=== PATIENT | female | born 1970 | race Hispanic/Latino ===

== ENCOUNTER 2020-03-21 21:16 | Inpatient (IN) | payer OTHER ==
[2020-03-21] MEDS ORDERED: CLINDAMYCIN 600MG/D5W 0 MG/0 ML BAG IV ONE (22:20)
[2020-03-21] MEDS ORDERED: NA CHLORIDE 0.9% 2,000 ML ONE (22:20)
[2020-03-21 22:22] LABS: Absolute Lymphocytes (CBC) 0.4 K/uL (0.7-4.9); Basophils % 0.1 % (0-1.3); Hematocrit 38.5 % (36.0-45.0); Lymphocytes % 3.1 % (15.3-44.8); MPV 9.6 fL (7.6-11.3)
[2020-03-21] MEDS ORDERED: BUPIVACAINE 0.5% PF 10 ML VIAL ONE (22:23)
[2020-03-21] MEDS ORDERED: LIDOCAINE 1% MPF 30 ML VIAL ONE (22:23)
[2020-03-21] MEDS ORDERED: ACETAMINOPHEN 500 MG TAB ONE (22:23)
[2020-03-21] MEDS ORDERED: CLINDAMYCIN 900MG/D5W 900 MG/50 ML IVPB IV ONE (22:23)
[2020-03-21] MEDS ORDERED: FENTANYL CITR 100 MCG/2 ML ONE (22:23)
[2020-03-21 22:35] LABS: Potassium 3.9 mmol/L (3.5-5.1)
[2020-03-21 22:41] LABS: Protime INR 1.1
[2020-03-21] MEDS ORDERED: VANCOMYCIN 1 GM/VIAL ONE (23:37)
[2020-03-21] MEDS ORDERED: NA CHLORIDE 0.9% 250 ML ONE (23:37)
--- NOTE | 2020-03-21 23:37 | ER ---
Nurse's Notes [facility] – [place], [place] Name: Lani Brito Age: 49 yrs Sex: Female : 1970 Arrival Date: 03/21/2020 Time: 21:18 Bed 5 Private MD: Diagnosis: Cutaneous abscess of right foot;Cellulitis of right lower limb;Other sepsis Presentation: 03/21 21:25 Chief complaint: Parent and/or Guardian states: mother: Swelling and pain on R foot x 2 ca1 - days. 21:28 Coronavirus screen: Client denies travel out of the [place] in the last 14 days. fever, ca1 Client presents with at least one sign or symptom that may indicate coronavirus-19. Standard/surgical mask placed on the client. Provider contacted for isolation considerations. Ebola Screen: Patient negative for fever greater than or equal to 101.5 degrees Fahrenheit, and additional compatible Ebola Virus Disease symptoms Patient denies exposure to infectious person. Patient denies travel to an Ebola-affected area in the 21 days before illness onset. No symptoms or risks identified at this time. Initial Sepsis Screen: Does the patient meet any 2 criteria? Temp <36.0*C (96.8*F)) or > 38.3*C (100.9*F). HR > 90 bpm. Does the patient have a suspected source of infection? Yes: Skin breakdown/wound. Risk Assessment: Do you want to hurt yourself or someone else? Patient reports no desire to harm self or others. Onset of symptoms was March 21, 2020. 21:28 Method Of Arrival: Wheelchair ca1 21:28 Acuity: NIK 2 ca1 SENIOR APPLICATIONS ANALYST: 21:31 LMP N/A - Post-menopause ca1 Historical: - Allergies: 21:31 No Known Allergies; ca1 - Home Meds: 21:31 None [Active]; ca1 - PMHx: 21:31 Cerebral Palsy; ca1 - PSHx: 21:31 Cholecystectomy; ca1 - Immunization history:: Adult Immunizations up to date, Flu vaccine is not up to date. - Social history:: Smoking status: Patient denies any tobacco usage or history of. Screenin:35 Abuse screen: Denies threats or abuse. Denies injuries from another. Nutritional sg screening: No deficits noted. Tuberculosis screening: No symptoms or risk factors identified. Never had TB. Fall Risk None identified. Assessment: 21:35 General: Appears well groomed, well developed, well nourished, Behavior is calm, sg cooperative, quiet. Pain: Complains of pain in right foot. Neuro: Level of Consciousness is awake, alert, obeys commands, Oriented to person, place, time, Facial symmetry appears normal. Cardiovascular: Patient's skin is warm and dry. Chest pain is denied. Respiratory: Airway is patent Respiratory effort is even, unlabored, Respiratory pattern is regular, symmetrical. GI: No signs and/or symptoms were reported involving the gastrointestinal system. : No signs and/or symptoms were reported regarding the genitourinary system. EENT: No signs and/or symptoms were reported regarding the EENT system. Derm: Skin is pink, warm \T\ dry. Rash noted that is red, on lateral side of right foot. Musculoskeletal: Circulation, motion, and sensation intact. Range of motion: intact in all extremities. 22:18 Reassessment: phlebo at bedside attempting to obtain BCx2, no success at this time, ERP sg notified. 22:55 Reassessment: xray at bedside at this time. sg 23:07 Reassessment: CAMI SALCEDO at bedside for ID at this time, pt family/bank vault custodian remains sg at bedside. 03/22 00:00 Reassessment: Patient appears in no apparent distress at this time. Patient and/or sg family updated on plan of care and expected duration. Pain level reassessed. 01:00 Reassessment: Patient appears in no apparent distress at this time. Patient and/or sg family updated on plan of care and expected duration. Pain level reassessed. Patient is alert, oriented x 3, equal unlabored respirations, skin warm/dry/pink. pt family remains at bedside, pt to be admitted, stated understanding Patient states feeling better. Vital Signs: 03/21 21:28 BP 116 / 83; Pulse 143; Resp 18 S; Temp 100.9(O); Pulse Ox 95% on R/A; Weight 63.5 kg ca1 (R); Height 5 ft. 2 in. (157.48 cm) (R); Pain 08/19; 22:52 BP 122 / 70; Pulse 121; Resp 18; Pulse Ox 99% on R/A; sg 03/22 00:39 BP 120 / 69; Pulse 108; Resp 18; Temp 99.2; Pulse Ox 99% ; Pain /; sg 03/21 21:28 Body Mass Index 25.61 (63.50 kg, 157.48 cm) ca1 ED Course: 03/21 21:18 Patient arrived in ED. ag3 21:30 Triage completed. ca1 21:31 Arm band placed on right wrist. ca1 21:33 Arnold Lira PA is PHCP. cp 21:33 Lamont Mckinney MD is Attending Physician. cp 21:35 Patient has correct armband on for positive identification. Bed in low position. Call sg light in reach. Warm blanket given. Head of bed elevated. 22:05 Davey Ro, ANNA is Primary Nurse. sg 22:06 Initial lab(s) drawn, by ca, sent to lab. Inserted saline lock: 22 gauge in left upper sg arm, using aseptic technique. Blood collected. 22:20 First set of blood cultures drawn by lab staff. Second set of blood cultures drawn by sg lab staff. 22:52 Notified Nurse Practitioner and/or Physician Plastic Cutter of a critical lab result(s), 2.1 sg Lactate. 22:58 XRAY Foot RIGHT 3 View In Process Unspecified. EDMS 23:15 Assist provider with I \T\ D: of an abscess on right foot Set up I\T\D tray. Performed by jonny SALCEDO Culture sent to lab. Wound packed. iodoform gauze, Dressing with 4X4s, tape Patient tolerated well. 23:34 Prince Fitzgerald MD is Hospitalizing Provider. cp 03/22 00:00 Dressings: Kerlix non-adherent dressing. Wound care: located on right foot was dressed sg with non adherent dressing. 00:23 Urine collected: clean catch specimen, clear. rr5 00:35 Patient admitted, IV remains in place. intact, No redness/swelling at site. sg Administered Medications: 03/21 22:19 Drug: NS 0.9% 1000 ml Route: IV; Rate: 1 bolus; Site: left upper arm; sg 22:19 Drug: fentaNYL (PF) 25 mcg Route: IVP; Site: left upper arm; sg 22:40 Follow up: Response: No adverse reaction; Pain is decreased sg 22:19 Drug: Tylenol 1000 mg Route: PO; sg 22:20 Drug: NS 0.9% 1000 ml Route: IV; Rate: 1 bolus; Site: left upper arm; sg 22:20 Drug: Lidocaine (1 %) 10 ml {Note: medication at bedside for administration by ERP.} sg Volume: 20 ml; Route: Infiltration; 22:20 Drug: Marcaine (0.5 %) 10 ml {Note: medication at bedside for administration by ERP.} sg Volume: 10 ml; Route: Infiltration; 22:42 Drug: Clindamycin 900 mg Route: IVPB; Infused Over: 30 mins; Site: left upper arm; sg 23:30 Drug: vancoMYCIN 1 grams Route: IVPB; Infused Over: 2 hrs; Site: left upper arm; sg Intake: 03/22 00:43 PO: 0ml; Total: 0ml. rr5 Output: 00:10 Urine: 200ml (Voided); Total: 200ml. rr5 00:43 Urine: 350ml (Voided); Total: 550ml. rr5 Outcome: 03/21 23:36 Decision to Hospitalize by Provider. cp 03/22 01:00 Admitted to Med/surg accompanied by tech, via stretcher, room 212, with chart, Report sg called to RN for room 212 Condition: stable Instructed on medication usage, safety practices, Demonstrated understanding of instructions, follow-up care. 01:02 Patient left the ED. sg Signatures: Dispatcher [employer] EDMS Davey Ro RN RN sg Arnold Lira PA PA Liliam Quezada 3 Nestor James RN RN rr5 Bella Luna RN RN ca1 Corrections: (The following items were deleted from the chart) 03/21 21:33 21:28 Coronavirus screen: Client denies travel out of the [place] in the last 14 days. At ca1 this time, the client does not indicate any symptoms associated with coronavirus-19. ca1 21:41 21:28 Initial Sepsis Screen: Does the patient meet any 2 criteria? No. Patient's ca1 initial sepsis screen is negative. Does the patient have a suspected source of infection? No. Patient's initial sepsis screen is negative. ca1 03/22 02:30 00:35 No provider procedures requiring assistance completed. sg sg
--- NOTE | 2020-03-21 23:37 | EDPHYS ---
Physician Documentation [facility] Name: Lani Brito Age: 49 yrs Sex: Female : 1970 Arrival Date: 03/21/2020 Time: 21:18 Bed 5 Private MD: ED Physician Lamont Mckinney HPI: 03/21 21:55 This 49 yrs old Female presents to ER via Wheelchair with complaints of Foot cp Pain. 21:55 The patient presents with pain, swelling, tenderness. The complaints affect the lateral cp plantar surface of right foot. Onset: The symptoms/episode began/occurred 2 day(s) ago. 21:55 Associated signs and symptoms: Pertinent positives: fever, swelling, warmth, of the cp right foot. 21:55 Treatment prior to arrival includes: no previous treatment. cp DIRECTOR OF CULTURE: 21:31 LMP N/A - Post-menopause ca1 Historical: - Allergies: 21:31 No Known Allergies; ca1 - Home Meds: 21:31 None [Active]; ca1 - PMHx: 21:31 Cerebral Palsy; ca1 - PSHx: 21:31 Cholecystectomy; ca1 - Immunization history:: Adult Immunizations up to date, Flu vaccine is not up to date. - Social history:: Smoking status: Patient denies any tobacco usage or history of. ROS: 22:00 MS/extremity: Positive for pain, swelling, tenderness, of the right foot. cp 22:00 Constitutional: Positive for fever, Negative for poor PO intake. cp 22:00 Cardiovascular: Negative for chest pain. 22:00 Respiratory: Negative for cough, shortness of breath, wheezing. 22:00 Abdomen/GI: Negative for abdominal pain, nausea, vomiting, and diarrhea. 22:00 Neuro: Negative for altered mental status, headache. 22:00 All other systems are negative. Exam: 22:05 Constitutional: The patient appears in no acute distress, alert, awake, non-toxic, well cp developed, well nourished. 22:05 Head/Face: Normocephalic, atraumatic. cp 22:05 Eyes: Periorbital structures: appear normal, Conjunctiva: normal, no exudate, no injection, Sclera: no appreciated abnormality, Lids and lashes: appear normal, bilaterally. 22:05 ENT: External ear(s): are unremarkable, Nose: is normal, Mouth: Lips: moist, Oral mucosa: moist, Posterior pharynx: Airway: no evidence of obstruction, patent. 22:05 Chest/axilla: Inspection: normal, Palpation: is normal, no crepitus, no tenderness. 22:05 Cardiovascular: Rate: tachycardic, Rhythm: regular. 22:05 Respiratory: the patient does not display signs of respiratory distress, Respirations: normal, no use of accessory muscles, no retractions, labored breathing, is not present, Breath sounds: are clear throughout, no decreased breath sounds, no stridor, no wheezing. 22:05 Abdomen/GI: Inspection: abdomen appears normal, Palpation: abdomen is soft and non-tender, in all quadrants. 22:05 Skin: abscess, that is moderate sized, of the plantar surface lateral side of right cp foot, with fluctuance, that is moderate, with surrounding cellulitis, that is mild, cellulitis, that is mild, irregular, on the right foot. Vital Signs: 21:28 BP 116 / 83; Pulse 143; Resp 18 S; Temp 100.9(O); Pulse Ox 95% on R/A; Weight 63.5 kg ca1 (R); Height 5 ft. 2 in. (157.48 cm) (R); Pain 4/10; 22:52 BP 122 / 70; Pulse 121; Resp 18; Pulse Ox 99% on R/A; sg 03/22 00:39 BP 120 / 69; Pulse 108; Resp 18; Temp 99.2; Pulse Ox 99% ; Pain 2/10; sg 03/21 21:28 Body Mass Index 25.61 (63.50 kg, 157.48 cm) ca1 Procedures: 03/21 23:30 I \T\ D: Incision and drainage was performed for an abscess of the plantar surface, cp lateral side right foot Prepped with Betadine, Anesthetized with 3 ccs of 1% lidocaine w/o epi and 0.5% marcaine. Incised with #11 blade. Drained moderate amount purulent fluid. Packed with iodoform gauze, Dressing: sterile 4x4 gauze, the patient tolerated the procedure well. MDM: 21:51 Patient medically screened. cp 22:00 Differential diagnosis: cellulitis, abscess, osteomyelitis, sepsis. cp 22:55 Data reviewed: vital signs, nurses notes, lab test result(s), radiologic studies, plain cp films. 22:55 Test interpretation: by ED physician or midlevel provider: xrays of right foot negative cp for fracture. 23:30 Physician consultation: Prince Amilcar CUEVAS was called at 22:55, was contacted at 22:55, cp regarding admission, to the medical/surgical unit. patient's condition, and will see patient in ED, shortly. 03/21 21:48 Order name: CBC with Diff 03/21 22:53 Interpretation: Normal except: WBC 12.2; CRUZ% 95.3; LYM% 3.1; MN% 1.5; NEUT A 11.6. 03/21 21:48 Order name: Procalcitonin; Complete Time: 22:53 03/21 22:53 Interpretation: Abnormal: Procalcitonin 3.69. 03/21 21:48 Order name: Lactate; Complete Time: 22:53 03/21 23:23 Interpretation: Reviewed. 03/21 21:48 Order name: BMP; Complete Time: 22:37 03/21 22:37 Interpretation: Normal except: NA 132; CL 97; GLUC 170; GFR 53. 03/21 21:48 Order name: PT-INR; Complete Time: 22:53 03/21 21:48 Order name: Blood Culture Adult (2) 03/21 22:05 Order name: Wound Culture 03/21 22:38 Order name: XRAY Foot RIGHT 3 View 03/22 00:23 Order name: Urine Microscopic Only rr5 03/22 00:25 Order name: Urine --Ancillary (enter results) tt3 03/22 00:25 Order name: Urine Dipstick--Ancillary (enter results) tt3 03/22 00:42 Order name: Urine --Ancillary EDIA 03/22 00:42 Order name: Urine Dipstick-Ancillary EDIA 03/22 00:49 Order name: Urine Microscopic Only EDIA 03/21 21:48 Order name: I\T\D Setup; Complete Time: 22:48 03/21 21:48 Order name: Urine Dipstick-Ancillary (obtain specimen); Complete Time: 00:23 03/21 21:48 Order name: Urine Test (obtain specimen); Complete Time: 00:23 cp Administered Medications: 22:19 Drug: NS 0.9% 1000 ml Route: IV; Rate: 1 bolus; Site: left upper arm; sg 22:19 Drug: fentaNYL (PF) 25 mcg Route: IVP; Site: left upper arm; sg 22:40 Follow up: Response: No adverse reaction; Pain is decreased sg 22:19 Drug: Tylenol 1000 mg Route: PO; sg 22:20 Drug: NS 0.9% 1000 ml Route: IV; Rate: 1 bolus; Site: left upper arm; sg 22:20 Drug: Lidocaine (1 %) 10 ml {Note: medication at bedside for administration by ERP.} sg Volume: 20 ml; Route: Infiltration; 22:20 Drug: Marcaine (0.5 %) 10 ml {Note: medication at bedside for administration by ERP.} sg Volume: 10 ml; Route: Infiltration; 22:42 Drug: Clindamycin 900 mg Route: IVPB; Infused Over: 30 mins; Site: left upper arm; sg 23:30 Drug: vancoMYCIN 1 grams Route: IVPB; Infused Over: 2 hrs; Site: left upper arm; sg Disposition: 03/22 00:00 Chart complete. cp 01:51 Co-signature as Attending Physician, Lmaont Mckinney MD. rn Disposition: 03/21/20 23:36 Hospitalization ordered by Prince Amilcar for Inpatient Admission. Preliminary diagnosis are Cutaneous abscess of right foot, Cellulitis of right lower limb, Other sepsis. - Bed requested for Telemetry/MedSurg (Inpatient). - Status is Inpatient Admission. sg - Condition is Stable. - Problem is new. - Symptoms have improved. Signatures: Dispatcher [employer] Lis Bob RN RN dw Gay, Steven, RN RN sg Nieto, Roman, MD MD rn Page, Corey, PA PA cp Acob, Cheryl, RN RN ca1 Corrections: (The following items were deleted from the chart) 03/21 23:51 23:36 Hospitalization Ordered by Prince Amilcar CUEVAS for Inpatient Admission. Preliminary cp diagnosis is Cutaneous abscess of right foot; Cellulitis of right lower limb. Bed requested for Telemetry/MedSurg (Inpatient). Status is Inpatient Admission. Condition is Stable. Problem is new. Symptoms have improved. cp 03/22 00:20 03/21 23:51 03/21/2020 23:36 Hospitalization Ordered by Prince Amilcar CUEVAS for Inpatient dw Admission. Preliminary diagnosis is Cutaneous abscess of right foot; Cellulitis of right lower limb; Other sepsis. Bed requested for Telemetry/MedSurg (Inpatient). Status is Inpatient Admission. Condition is Stable. Problem is new. Symptoms have improved. cp 03/22 01:02 00:20 03/21/2020 23:36 Hospitalization Ordered by Prince Amilcar CUEVAS for Inpatient sg Admission. Preliminary diagnosis is Cutaneous abscess of right foot; Cellulitis of right lower limb; Other sepsis. Bed requested for Telemetry/MedSurg (Inpatient). Status is Inpatient Admission. Condition is Stable. Problem is new. Symptoms have improved. dw 01:50 03/21 23:00 Physician consultation: Prince Amilcar CUEVAS was called at 22:55, was cp contacted at 22:55, regarding admission, to the medical/surgical unit. patient's condition, and will see patient in ED, shortly, darrell 03/22 20:52 03/21 21:55 Onset: The symptoms/episode began/occurred gradually, cp cp
--- NOTE | 2020-03-22 00:10 | P.HP ---
Certification for Inpatient Patient admitted to: Inpatient With expected LOS: >2 Midnights Practitioner: I am a practitioner with admitting privileges, knowledge of patient current condition, hospital course, and medical plan of care. Services: Services provided to patient in accordance with Admission requirements found in Title 42 Section 412.3 of the Code of Federal Regulations Patient History Date of Service: 03/22/20 Reason for admission: R foot cellulitis and abscess History of Present Illness: Patient is a 49-year-old female with unknown past medical history of cerebral palsy who presents to the ER accompanied by mother (who is also her caregiver) for evaluation of right foot infection. History obtained from mother. Patient likes to walk on the lateral portion of her plantar surface. She chronically develops callouses that require periodic shaving by Podiatry. She is also to wear orthotics shoes when ambulating. Mother states that lately, after recent of her , she has been too overwhelmed to ensure that patient wears to wear the proper shoes. As a result, patient has developed an open wound on the plantar surfarce of her R foot near the heel. She is also having subjective fever and chills. She presented to the ER with evidence of severe sepsis. Physical Examination - Physical Exam General: Cooperative, Mild distress, Obese HEENT: Atraumatic, Normocephalic, EOMI Neck: Supple Respiratory: Clear to auscultation bilaterally, Normal air movement Cardiovascular: Normal pulses, Regular rate/rhythm, Normal S1 S2 Gastrointestinal: Normal bowel sounds, Non-distended, No tenderness Musculoskeletal: Erythema, Tenderness, Warmth, Other (R heel with partially drained abscess. Erythema on the dorsum of R foot) Neurological: Abnormal affect - Studies Laboratory Data (last 24 hrs) 03/21/20 22:00: PT 13.0 H, INR 1.10 03/21/20 22:00: Sodium 132 L, Potassium 3.9, BUN 11, Creatinine 1.09, Glucose 170 H 03/21/20 22:00: WBC 12.2 H, Hgb 13.5, Hct 38.5, Plt Count 164 Assessment and Plan - Problems (Diagnosis) (1) Cerebral palsy Current Visit: Yes Status: Acute (2) Cellulitis and abscess of toe of right foot Current Visit: Yes Status: Acute (3) Severe sepsis Current Visit: Yes Status: Acute - Advance Directives Does patient have a Living Will: No Does patient have a Durable POA for Healthcare: No Physician Review Additional Text: Assessment Patient is a 49 year old female with cerebral palsy who presents with severe sepsis secondary to R foot cellulitis and abscess. She has lactic acidosis. Sepsis protocol initiated in the ER. Blood cultures drawn. Patient received IVF along with vancomycin and clindamycin. ED performed a bedside drai nage with 5 cc wound purulent material drained. Wound cultures sent Severe sepsis R foot cellulitis Cerebral palsy PLAN: Admit inpatient Continue vancomycin and clindamycin MRI foot to rule out osteomyelitis Surgery and wound care consulted Follow up blood and wound cultures Trend lactic acid q 4 hours and treat if indicated
--- NOTE | 2020-03-22 00:19 | P.INFCA ---
Sepsis Focused Assessment - Sepsis Screen Result Severe Sepsis: Positive Septic Shock: Negative - Evaluation Current stage of sepsis: Severe sepsis - Vital Signs Reviewed: Yes - Examination Heart: Regular rate/rhythm Lungs: Clear bilaterally Peripheral pulses: 3+ Normal Peripheral pulse location: Pedal Skin examination: Pale
[2020-03-22 00:42] LABS: Urine Blood NEGATIVE (NEG); Urine Glucose NEGATIVE (NEG); Urine Protein NEGATIVE (NEG); Urine pH 5.5 (5.0-7.0)
[2020-03-22 00:49] LABS: Urine Bacteria <20 /HPF (<20); Urine Culture Reflex Order NOT NEEDED; Urine RBC NONE SEEN /HPF (NONE SEEN)
[2020-03-22 01:07] LABS: Blood Morphology Comment NOT SEEN (NOT SEEN); Platelet Estimate ADEQ
[2020-03-22 01:33] VITALS: BMI 26.7
[2020-03-22 05:34] LABS: Absolute Lymphocytes (CBC) 0.7 K/uL (0.7-4.9); Basophils % 0.4 % (0-1.3); Hematocrit 33.4 % (36.0-45.0); Lymphocytes % 3.8 % (15.3-44.8); MPV 9.5 fL (7.6-11.3); RBC Red Blood Cell Count 3.88 M/uL (3.86-4.86)
--- NOTE | 2020-03-22 08:54 | RAD REPORT ---
EXAM DESCRIPTION: RAD - Foot Right 3 View - 03/21/2020 11:02 pm CLINICAL HISTORY: Pain;Swelling COMPARISON: No comparisons FINDINGS: Bony fusion changes are present involving the midfoot with hardware noted. There is a larg e amount of soft tissue swelling is seen adjacent to the fifth metacarpal and fifth toe region. The u nderlying bone appears intact with cortical thickening present.
[2020-03-22] MEDS ORDERED: INFLUENZA VACCINE (for 3y+) 0.5 ML DOSE IMVAC ONE (09:00)
[2020-03-22] MEDS ORDERED: PIPER/TAZO/NS 3.375gm 3.375 GM/100 ML BAG IVPB SCH (09:00)
[2020-03-22] MEDS ORDERED: CLINDAMYCIN PHOSPHATE 900 MG in NA CHLORIDE 0.9% 50 ML IV SCH (09:00)
--- NOTE | 2020-03-22 13:12 | P.CNS ---
Date of Consult: 03/22/20 PC: I was asked disease 49-year-old female regards to the wound on the lateral aspect over the head of the metacarpal phalangeal joint of her right foot HPC: This patient is had an area of pain and tenderness over the last week or so. She came to emergency room last night was found have an abscess in this area with with surrounding cellulitis. She had elevated white cell count 18,000. This area was opened and drained of some purulent material. Packing was placed. PMH: Cerebral palsy PSHx: Previous cholecystectomy SOC: No known allergies SYS REVIEW: Patient states she has been in good health but has had this area of concern for the last for 5 months. O/E awake alert stable HEENT: Within normal limits Chest: Chest movement equal by ABD: Not examine LOCO: On the lateral aspect of her right foot over the head of the med and tarsal phalangeal joint has an area on the plantar surface that has been incised and drained. There is surrounding chronic changes of the skin. There is also some surgical packing which I removed. Base of the wound appears clear. DATA: Elevated white cell count IMPRESSION: Acute infection on a chronic wound on her right foot PLAN: Will put Medihoney to the wound. Most likely will have this patient discharge soon and will follow as an outpatient [facility]. Will check on a wound improvement tomorrow morning. Does not require OR at this current time.
--- NOTE | 2020-03-22 13:39 | P.PN ---
Subjective Date of Service: 03/22/20 Chief Complaint: R foot cellulitis and abscess Subjective: Improving (Feeling better this morning, slight pain to the area or incision was made on her foot) Review of Systems 10-point ROS is otherwise unremarkable Physical Examination - Vital Signs Temperature: 98.7 F Blood Pressure: 100/68 Pulse: 92 Respirations: 18 Pulse Ox (%): 93 - Physical Exam General: Alert, In no apparent distress HEENT: Sclerae nonicteric Respiratory: Clear to auscultation bilaterally, Normal air movement Cardiovascular: No edema, Regular rate/rhythm Gastrointestinal: Soft and benign, Non-distended, No tenderness Integumentary: Other (Lateral aspect of right foot: area s/p I&D, no purulent drainage, packing in place ) - Studies Laboratory Data (last 24 hrs) 03/21/20 22:00: PT 13.0 H, INR 1.10 03/21/20 22:00: Sodium 132 L, Potassium 3.9, BUN 11, Creatinine 1.09, Glucose 170 H 03/21/20 22:00: WBC 12.2 H, Hgb 13.5, Hct 38.5, Plt Count 164 Microbiology Data (last 24 hrs): 03/21/20 23:10 Wound - Right Foot Gram Stain - Final Assessment & Plan Physician Review Additional Text: 49 year old female with cerebral palsy who presented with severe sepsis secondary to R foot cellulitis and abscess. She has lactic acidosis. Sepsis protocol initiated in the ER. Blood cultures drawn. Patient received IVF along with vancomycin and clindamycin. ED performed a bedside drainage with 5 cc wound purulent material drained. Wound cultures sent Severe sepsis R foot cellulitis Cerebral palsy Patient feeling better On vanc and Zosyn, switched Zosyn to cefepime, awaiting cultures Leukocytosis of pro calcitonin increased this morning, will trend tomorrow Surgery and wound care consulted, may need further debridement Follow up blood and wound cultures Lactic acidosis resolved dispo: awaiting cultures, surgery consult, anticipate discharge home in 24-48hrs Time Spent Managing Pts Care (In Minutes): 35
[2020-03-22] MEDS: CEFEPIME/SWI 2gm 2 GM/20 ML SYR IV SCH (16:17)
[2020-03-22] MEDS: MEDIHONEY 44 ML TOPICAL TUBE TOP SCH (16:31)
--- NOTE | 2020-03-22 20:32 | RAD REPORT ---
EXAM DESCRIPTION: MRI - Foot Right Wo Cont - 03/22/2020 8:16 pm CLINICAL HISTORY: R/O OSTEO COMPARISON: Foot Right 3 View dated 03/21/2020 TECHNIQUE: Multiplanar imaging of the right foot performed using T1 weighted, T1 fat saturation, T2 fat saturation and T2 stir sequencing. FINDINGS: Earlier plain film imaging showed prominent soft tissue swelling along the lateral margin of the fifth metatarsal and fifth toe. There is an approximately 3 x 3 centimeter area of soft tissue swelling and edema lateral to the fift h metatarsal and fifth MTP joint. There is callus formation around the midshaft fifth metatarsal from prior fracture repair and remodeling. Marrow signal characteristics of the fifth metatarsal indicate no osteomyelitis or fracture related edema. Marrow signal characteristics the fifth toe are also nor mal range. The remaining metatarsals and phalanges are without suspicious findings. Tarsal bones are not easily assessed due to the metal artifact from the fusion hardware. No abscess or drainable fluid collection in the soft tissues. IMPRESSION: No osteomyelitis or destructive changes of the right foot identifiable. Prominent soft tissue swelling and edema lateral to the fifth metatarsal and fifth MTP joint. No drai nable fluid collection in the soft tissues identifiable.
[2020-03-22] MEDS ORDERED: VANCOMYCIN 1.25 GM in NA CHLORIDE 0.9% 250 ML IVPB SCH (23:00)
[2020-03-23] MEDS: CEFEPIME/SWI 2gm 2 GM/20 ML SYR IV SCH ×3 (00:23→17:05)
[2020-03-23 06:01] LABS: Absolute Lymphocytes (CBC) 1.3 K/uL (0.7-4.9); Basophils % 0.3 % (0-1.3); Hematocrit 34.5 % (36.0-45.0); Lymphocytes % 11.8 % (15.3-44.8); MPV 9.7 fL (7.6-11.3); RBC Red Blood Cell Count 3.97 M/uL (3.86-4.86)
[2020-03-23 06:20] LABS: BUN Blood Urea Nitrogen 6 mg/dL (7-18); Bicarbonate 25 mmol/L (21-32); Glucose Level 184 mg/dL (74-106); Sodium Level 138 mmol/L (136-145)
[2020-03-23 06:33] LABS: Potassium 2.8 mmol/L (3.5-5.1)
[2020-03-23] MEDS ORDERED: NA CHLORIDE 0.9% 500 ML IV PRN (06:58)
[2020-03-23 07:04] LABS: Magnesium 1.9 mg/dL (1.8-2.4)
[2020-03-23] MEDS: KCL 20 MEQ/100 mL IVPB 20 MEQ/100 ML BAG IV SCH ×3 (09:55→14:05)
--- NOTE | 2020-03-23 11:53 | P.PN ---
Date of Service: 03/23/20 S: No specific complaints O: Dressings intact, MRI apparently negative A: Has a wound open on the lateral aspect of her toe, will not be needing any surgical debridement, will treat with dressing changes, she could be followed at the wound Care Center.
[2020-03-23] MEDS: MEDIHONEY 44 ML TOPICAL TUBE TOP SCH (13:10)
--- NOTE | 2020-03-23 18:28 | P.PN ---
Subjective Date of Service: 03/23/20 Chief Complaint: R foot cellulitis and abscess Subjective: Improving (Feeling better, and not reporting any pain, denies fevers/chills) Review of Systems 10-point ROS is otherwise unremarkable Physical Examination - Vital Signs Temperature: 98.2 F Blood Pressure: 132/88 Pulse: 90 Respirations: 16 Pulse Ox (%): 99 - Physical Exam General: Alert, In no apparent distress HEENT: Sclerae nonicteric Respiratory: Clear to auscultation bilaterally Cardiovascular: No edema, Regular rate/rhythm Gastrointestinal: Soft and benign, Non-distended, No tenderness Integumentary: Other (Right foot, dressing c/d/i) Neurological: Normal affect - Studies Microbiology Data (last 24 hrs): 03/21/20 23:10 Wound - Right Foot Gram Stain - Final Assessment & Plan Physician Review Additional Text: 49 year old female with cerebral palsy who presented with severe sepsis secondary to R foot cellulitis and abscess. She has lactic acidosis. Sepsis protocol initiated in the ER. Blood cultures drawn. Patient received IVF along with vancomycin and clindamycin. ED performed a bedside drainage with 5 cc wound purulent material drained. Wound cultures sent Severe sepsis R foot cellulitis Hypokalemia Cerebral palsy Patient feeling better, afebrile since admission Wound cultures with GNR, likely contaminant. Will deescalate to doxycycline Improvement of leukocytosis some pro calcitonin Surgery/wound care consulted, agree with de-escalation of doxycycline, recommend home health, recommend follow up with wound Care Center Follow up blood and wound cultures Lactic acidosis resolved Hypokalemia this morning, patient without emesis/diarrhea, replete, recheck in a.m. dispo: Anticipate discharge home tomorrow with home health, follow up the wound Care Clinic, pending potassium tomorrow Time Spent Managing Pts Care (In Minutes): 35
[2020-03-23] MEDS ORDERED: POTASSIUM CL SA 10 MEQ TAB PO ONE (19:43)
[2020-03-23] MEDS: DOXYCYCLINE 100 MG in NA CHLORIDE 0.9% 100 ML IVPB SCH (21:39)
[2020-03-24 05:51] LABS: Basophils % 0.8 % (0-1.3); Hematocrit 36.5 % (36.0-45.0); MPV 9.9 fL (7.6-11.3); RBC Red Blood Cell Count 4.16 M/uL (3.86-4.86)
[2020-03-24 06:02] LABS: BUN Blood Urea Nitrogen 7 mg/dL (7-18); Bicarbonate 25 mmol/L (21-32); Glucose Level 109 mg/dL (74-106); Magnesium 2.2 mg/dL (1.8-2.4); Potassium 3.6 mmol/L (3.5-5.1); Sodium Level 141 mmol/L (136-145)
[2020-03-24] MEDS ORDERED: POTASSIUM CL SA 10 MEQ TAB PO ONE (06:08)
[2020-03-24] MEDS: DOXYCYCLINE 100 MG in NA CHLORIDE 0.9% 100 ML IVPB SCH (09:41)
[2020-03-24] MEDS: MEDIHONEY 44 ML TOPICAL TUBE TOP SCH (09:42)
[2020-03-24 10:28] VITALS: O2SAT 95
--- NOTE | 2020-03-24 12:23 | P.DS ---
Admission Date: 03/21/20 Discharge Date: 03/24/20 Disposition: [place] HOME/HOME HEALTH CARE Discharge Condition: GOOD Reason for Admission: R foot cellulitis and abscess Consultations: General Surgery - Dr. Liu Procedures: Foot x-ray (03/21): Bony fusion changes are present involving the midfoot with hardware noted. There is a large amount of soft tissue swelling is seen adjacent to the fifth metacarpal and fifth toe region. The underlying bone appears intact with cortical thickening present. Foot MRI (03/22): : No osteomyelitis or destructive changes of the right foot identifiable. Prominent soft tissue swelling and edema lateral to the fifth metatarsal and fifth MTP joint. No drainable fluid collection in the soft tissues identifiable. Problem List Severe sepsis R foot cellulitis Hypokalemia Cerebral palsy Brief History of Present Illness: 49-year-old female with unknown past medical history of cerebral palsy presents to ED accompanied by mother (who is also her caregiver) for evaluation of right foot infection. History obtained from mother. Patient likes to walk on the lateral portion of her plantar surface. She chronically develops callouses that require periodic shaving by Podiatry. She is also to wear orthotics shoes when ambulating. Mother states that lately, after recent of her , she has been too overwhelmed to ensure that patient wears to wear the proper shoes. As a result, patient has developed an open wound on the plantar surfarce of her R foot near the heel. She is also having subjective fever and chills. She presented to the ER with evidence of severe sepsis Hospital Course: She was empirically treated with Vanc & Cefepime. She underwent I&D in ED. Cultures from wound were obtained and grew proteus and staph aureus. She was discharged on doxycycline and ceftin. She is to continue local wound care with [facility]. She will follow up with Dr. Liu next week at the wound clinic. Vital Signs/Physical Exam: Temp Pulse Resp BP Pulse Ox 97.3 F 78 14 111/77 95 03/24/20 08:00 03/24/20 08:00 03/24/20 08:00 03/24/20 08:00 03/24/20 08:00 General: Alert, In no apparent distress, Oriented x3 HEENT: Mucous membr. moist/pink, Sclerae nonicteric Respiratory: Clear to auscultation bilaterally Cardiovascular: No edema, Regular rate/rhythm Gastrointestinal: Soft and benign, Non-distended, No tenderness Integumentary: Other (open wound on lateral aspect of her 5th toe, dressing in place, c/d/i) Neurological: Normal affect Laboratory Data at Discharge: WBC 7.0 K/uL (4.3-10.9) D 03/24/20 05:19 Hgb 12.2 g/dL (12.0-15.0) 03/24/20 05:19 Hct 36.5 % (36.0-45.0) 03/24/20 05:19 Plt Count 218 K/uL (152-406) D 03/24/20 05:19 PT 13.0 SECONDS (9.5-12.5) H 03/21/20 22:00 INR 1.10 03/21/20 22:00 Sodium 141 mmol/L (136-145) 03/24/20 05:19 Potassium 3.6 mmol/L (3.5-5.1) 03/24/20 05:19 BUN 7 mg/dL (7-18) 03/24/20 05:19 Creatinine 0.57 mg/dL (0.55-1.3) 03/24/20 05:19 Glucose 109 mg/dL (74-106) H 03/24/20 05:19 Magnesium 2.2 mg/dL (1.8-2.4) 03/24/20 05:19 Home Medications: Cefuroxime Axetil [Cefuroxime] 500 mg PO BID 14 Days #28 tab 03/24/20 RX: Doxycycline Hyclate [Vibramycin] 100 mg PO BID 14 Days #28 capsule 03/24/20 RX: Medihoney [Medihoney Woundcare Gel*] 1 appl TOP DAILY 30 Days #1 tube 03/24/20 New Medications: Cefuroxime Axetil [Cefuroxime] 500 mg PO BID 14 Days #28 tab RX: Medihoney [Medihoney Woundcare Gel*] 1 appl TOP DAILY 30 Days #1 tube RX: Doxycycline Hyclate [Vibramycin] 100 mg PO BID 14 Days #28 capsule Patient Discharge Instructions: follow up with PCP. follow up with Dr. Liu and wound care center next week. home health nursing ordered to assist with wound care Diet: Regular Activity: Ad lucero Followup: Unknown,U [Primary Care Provider] - Time spent managing pt's care (in minutes): 35
[2020-03-24 14:06] VITALS: BP 120/77; TEMP 98.2
== END 2020-03-24 15:01 | disposition home or self-care (01) | DRG 872 ==
LOC: ER 21:16 → ERHOLD 23:38 → 2ND 03-22 00:46
PROVIDERS: ADMIT Internal Medicine; ATTEND Hospitalist
PROC: 0Y9M3ZZ Drainage of Right Foot, Percutaneous Approach (ICD-10-PCS; principal; 2020-03-21)
DX: A41.9 Sepsis, unspecified organism (principal); L02.611 Cutaneous abscess of right foot; E87.2 Acidosis; L03.115 Cellulitis of right lower limb; R65.20 Severe sepsis without septic shock; G80.9 Cerebral palsy, unspecified; E87.6 Hypokalemia; B95.61 Methicillin susceptible Staphylococcus aureus infection as the cause of diseases classified elsewhere; B96.4 Proteus (mirabilis) (morganii) as the cause of diseases classified elsewhere; E66.9 Obesity, unspecified; Z68.26 Body mass index [BMI] 26.0-26.9, adult; Z90.49 Acquired absence of other specified parts of digestive tract; Z20.828 Contact with and (suspected) exposure to other viral communicable diseases
CPT/HCPCS: 36415; 80048; 80202; 81003; 81015; 81025; 83605; 83735; 84132; 84145; 85025; 85610; 87040; 87070; 87077; 87186; 87205; 96374; 96375; 99285; J0692; J2543; J3010; J3370; J3480; J7030; J7040; J7050; S0077; U0002